=== PATIENT | female | born 1965 | race Caucasian/White ===

== ENCOUNTER 2016-09-20 12:50 | Emergency (ER) | payer SELFPAY ==
[2016-09-20] MEDS ORDERED: Albuterol/Ipratropium NEB.SOL* Albuterol 2.5 MG/Ipratropium 0.5 MG 3 ML INH ONE (16:07)
--- NOTE | 2016-09-20 16:07 | UC ---
Respiratory Complaint HPI - HPI Summary HPI Summary: cough for 1 week chest and back hurt from coughing, sinus and ears congested has sensation of movement in head--has been taking sudafed based medications for congestion - History of Current Complaint Chief Complaint: UCRespiratory Stated Complaint: COUGH Time Seen by Provider: 09/20/16 16:00 Hx Obtained From: Patient Hx Last Menstrual Period: 3 WEEKS AGO ?: No Onset/Duration: Gradual Onset, Lasting Weeks - 1, Still Present Timing: Constant Severity Initially: Mild Severity Currently: Mild Pain Intensity: 4 Pain Scale Used: 0-10 Numeric Character: Cough: Nonproductive Aggravating Factors: Nothing Alleviating Factors: OTC Meds Associated Signs And Symptoms: Positive: Pleuritic Chest Pain, URI, Nasal Congestion, Sinus Discomfort - Allergies/Home Medications Allergies/Adverse Reactions: Allergies Allergy/AdvReac Type Severity Reaction Status Date / Time No Known Allergies Allergy Verified 09/20/16 15:56 Home Medications: Home Medications Levothyroxine Sodium [Levoxyl] 09/20/16 [History] PMH/Surg Hx/FS Hx/Imm Hx Previously Healthy: No Endocrine History Of: Reports: Thyroid Disease Cardiovascular History Of: Reports: Hypertension - Surgical History Surgical History: Yes Surgery Procedure, Year, and Place: APPENDECTOMY, X2 - Family History Known Family History: Positive: None Family History: denies cardio vascular issues in family lineage - Social History Occupation: Employed Full-time Lives: With Family Alcohol Use: None Substance Use Type: None Smoking Status (MU): Never Smoked Tobacco Review of Systems Constitutional: Fatigue Skin: Negative Eyes: Negative ENT: Sore Throat, Ear Ache, Nasal Discharge Respiratory: Cough Cardiovascular: Chest Pain Gastrointestinal: Negative Genitourinary: Negative Motor: Negative Neurovascular: Negative Musculoskeletal: Negative Neurological: Headache Psychological: Negative All Other Systems Reviewed And Are Negative: Yes Physical Exam Triage Information Reviewed: Yes Appearance: Ill-Appearing - mild, Pain Distress - mild, Obese Vital Signs: Initial Vital Signs Temp 99.4 F 09/20/16 15:51 Pulse 57 09/20/16 15:51 Resp 16 09/20/16 15:51 BP 192/125 09/20/16 15:51 Pulse Ox 100 09/20/16 15:51 Vital Signs Reviewed: Yes Eye Exam: Normal Eyes: Positive: Conjunctiva Clear ENT Exam: Normal ENT: Positive: Normal ENT inspection, Hearing grossly normal, Pharynx normal, Nasal congestion, Nasal drainage, TMs normal. Negative: Tonsillar swelling, Tonsillar exudate, Trismus, Muffled/hoarse voice Neck exam: Normal Neck: Positive: Supple, Nontender, No Lymphadenopathy Respiratory Exam: Normal Respiratory: Positive: Chest non-tender, Lungs clear, Normal breath sounds, No respiratory distress, No accessory muscle use Cardiovascular Exam: Normal Cardiovascular: Positive: RRR, No Murmur, Pulses Normal, Brisk Capillary Refill , Other: - BP improved with damon re-check Musculoskeletal Exam: Normal Musculoskeletal: Positive: Strength Intact, ROM Intact, No Edema Neurological Exam: Normal Neurological: Positive: Alert, Muscle Tone Normal Psychological Exam: Normal Skin Exam: Normal UC Diagnostic Evaluation - Laboratory O2 Sat by Pulse Oximetry: 100 Respiratory Course/Dx - Course Course Of Treatment: albuterol, prednisone, flonase, augmentin, stop sudafed based decongestants, follow with pcp for bp re-check - Differential Dx/Diagnosis Differential Diagnosis/HQI/PQRI: Bronchitis, Laryngitis, Sinusitis Provider Diagnoses: Sinusitis, Bronchitis with bronchospasm, hypertension Discharge - Discharge Plan Condition: Stable Disposition: HOME Prescriptions: Albuterol HFA INHALER* [Ventolin HFA Inhaler*] 2 puff INH Q4H PRN #1 mdi PRN Reason: cough/chest congestion Amoxicillin/Clavulanate TAB* [Augmentin TAB 875*] 875 mg PO BID #20 tab Fluticasone NASAL SPRAY 50MCG* [Flonase NASAL SPRAY 50MCG*] 2 spray BOTH NARES DAILY #1 btl predniSONE TAB* [Deltasone TAB*] 10 mg PO DAILY #20 tab Patient Education Materials: Albuterol (By mouth), Sinusitis (ED), How to Use a Metered-Dose Inhaler (ED), DASH Eating Plan (ED), Hypertension (ED), Bronchospasm (ED) Forms: *Work Release Referrals: Myles Montelongo MD [Primary Care Provider] - 5 Days Additional Instructions: Stop all OTC meds with Sudafed in them--as these may be the cause of your elevated Blood Pressure. You may take OTC meds with high blood pressure formulations that are available at the pharmacy
[2016-09-20 16:17] VITALS: BP 149/110
== END 2016-09-20 17:03 | disposition home or self-care (01) ==
LOC: UCEAST 12:50
DX: J32.9 Chronic sinusitis, unspecified (principal); J20.9 Acute bronchitis, unspecified; I10 Essential (primary) hypertension; E07.9 Disorder of thyroid, unspecified
CPT/HCPCS: 94640; 99202; A9270-GY; G0463

== ENCOUNTER 2018-10-08 09:24 | Emergency (ER) | payer BC ==
[2018-10-08 10:26] VITALS: BP 192/113
--- NOTE | 2018-10-08 10:41 | UC ---
Respiratory Complaint HPI - HPI Summary HPI Summary: 5 days of cough and congestions, with difficulty sleeping and copious phlegm production. No sore throat, ear pain or headache. Has a past history of pneumonia and bronchitis, but is not currently feeling short of breath or having chest pain. Began an antihypertensive about a week ago, and has not taken today's dose. In the past, inhaled albuterol was not particularly helpful. - History of Current Complaint Chief Complaint: UCRespiratory Stated Complaint: COUGH RESP ISSUE Time Seen by Provider: 10/08/18 10:26 Hx Obtained From: Patient Hx Last Menstrual Period: 3 WEEKS AGO Onset/Duration: Gradual Onset, Lasting Days - 5 Timing: Intermittent Episodes Severity Initially: Moderate Severity Currently: Moderate Pain Intensity: 0 Character: Cough: Productive Aggravating Factors: Exertion, Recumbent Position Alleviating Factors: OTC Meds - not adequately suppressing the cough., Upright Position Associated Signs And Symptoms: Positive: Wheezing, Nasal Congestion, Hoarseness - Risk Factors Pulmonary Embolism Risk Factors: Negative Cardiac Risk Factors: Hypertension Pseudomonas Risk Factors: Negative Tuberculosis Risk Factors: Negative - Allergies/Home Medications Allergies/Adverse Reactions: Allergies Allergy/AdvReac Type Severity Reaction Status Date / Time No Known Allergies Allergy Verified 10/08/18 10:26 Home Medications: Home Medications Lisinopril TAB* [Prinivil TAB*] 10 mg PO DAILY 10/08/18 [History Confirmed 10/08] 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 Cardiovascular History: Hypertension - diangosed recently, just began use of lisinopril within the week, and has not taken today's dose. Respiratory History: Bronchitis, Pneumonia - Surgical History Surgical History: Yes Surgery Procedure, Year, and Place: APPENDECTOMY, X2 - Family History Known Family History: Positive: None - states both parents are livng and healthy Negative: Cardiac Disease, Hypertension, Diabetes Family History: denies cardio vascular issues in family lineage - Social History Occupation: Employed Full-time Alcohol Use: Occasionally Substance Use Type: None Smoking Status (MU): Never Smoked Tobacco Review of Systems All Other Systems Reviewed And Are Negative: Yes Constitutional: Positive: Fatigue Skin: Positive: Negative Eyes: Positive: Negative ENT: Positive: Nasal Discharge, Sinus Congestion Respiratory: Positive: Cough Cardiovascular: Positive: Negative Gastrointestinal: Positive: Negative Genitourinary: Positive: Negative Motor: Positive: Negative Neurovascular: Positive: Negative Musculoskeletal: Positive: Negative Neurological: Positive: Negative Psychological: Positive: Negative Is Patient Immunocompromised?: No Physical Exam Triage Information Reviewed: Yes Appearance: Ill-Appearing - looks mildly unwell, Obese Vital Signs: Initial Vital Signs Temp 98.7 F 10/08/18 10:22 Pulse 75 10/08/18 10:22 Resp 16 10/08/18 10:22 BP 192/113 10/08/18 10:22 Pulse Ox 95 10/08/18 10:22 Eyes: Positive: Conjunctiva Clear ENT: Positive: Pharynx normal Dental Exam: Normal Neck: Positive: Supple, Nontender, No Lymphadenopathy Respiratory: Positive: Decreased breath sounds, Wheezing - inspiratory and expiratory wheezing Cardiovascular: Positive: RRR, No Murmur Neurological Exam: Normal Neurological: Positive: Alert Psychological Exam: Normal Skin Exam: Normal UC Diagnostic Evaluation - Laboratory O2 Sat by Pulse Oximetry: 95 Respiratory Course/Dx - Course Course Of Treatment: augmentin and prednisone for treatment, rest at home - Differential Dx/Diagnosis Differential Diagnosis/HQI/PQRI: Bronchitis, Laryngitis, Lower Resp Infection, Sinusitis Provider Diagnosis: Bronchitis Discharge - Sign-Out/Discharge Documenting (check all that apply): Patient Departure All imaging exams completed and their final reports reviewed: No Studies - Discharge Plan Condition: Stable Disposition: HOME Prescriptions: Amoxicillin/Clavulanate TAB* [Augmentin TAB 875*] 875 mg PO BID #14 tab Benzonatate CAP* [Tessalon 100 MG CAP*] 100 mg PO TID PRN #30 cap PRN Reason: Cough predniSONE [Prednisone 20 MG TAB] 2 tab PO DAILY #10 tablet Patient Education Materials: Acute Bronchitis (ED) Referrals: Pamela Heath MD [Primary Care Provider] - Additional Instructions: Ensure that you take your lisinopril when you get home AND ensure that your blood pressure is re-checked within the week. Augmentin has been prescribed for treatment of your infection, along with prednisone to decrease airway inflammation. Use tessalon perles for cough suppression. - Billing Disposition and Condition Condition: STABLE Disposition: Home
== END 2018-10-08 10:55 | disposition home or self-care (01) ==
LOC: UCEAST 09:24
DX: J40 Bronchitis, not specified as acute or chronic (principal); I10 Essential (primary) hypertension
CPT/HCPCS: 99212; G0463

== ENCOUNTER 2019-01-29 17:49 | Emergency (ER) | payer BC ==
[2019-01-29 19:29] LABS: ABS Basophils 0.1 10^3/ul (0-0.2); ABS Eosinophils 0.1 10^3/ul (0-0.6); ABS Lymphocytes 1.3 10^3/ul (1.0-4.8); ABS Monocytes 0.6 10^3/ul (0-0.8); ABS Neutrophils 6.2 10^3/ul (1.5-7.7); Eosinophil % 1.8 %; Hematocrit 40 % (35-47); Hemoglobin 13.2 g/dL (12.0-16.0); Lymphocyte % 16.2 %; Mean Corpuscular HGB Conc 33 g/dL (31-36); Mean Corpuscular Hemoglobin 28 pg (27-31); Mean Corpuscular Volume 86 fL (80-97); Mean Platelet Volume 8.4 fL (7.4-10.4); Nucleated Red Blood Cells % 0.1; Platelet Count 343 10^3/uL (150-450); Red Blood Count 4.69 10^6 /uL (3.70-4.87); Red Cell Distribution Width 17 % (10.5-15); White Blood Count 8.3 10^3/uL (3.5-10.8)
[2019-01-29 19:45] LABS: Albumin 4.6 g/dL (3.2-5.2); Albumin/Globulin Ratio 1.3 (1-3); BUN/Creatinine Ratio 13.4 (8-20); Calcium 9.8 mg/dL (8.6-10.3); EGFR African American 88.9 (>60); EGFR Non-African American 73.5 (>60); Globulin 3.5 g/dL (2-4); Magnesium 2.1 mg/dL (1.9-2.7); Potassium 3.5 mmol/L (3.5-5.0); Total Bilirubin 0.4 mg/dL (0.2-1.0); Total Protein 8.1 g/dL (6.4-8.9)
[2019-01-29 19:46] LABS: Troponin I 0.01 ng/mL (<0.04)
--- NOTE | 2019-01-29 19:57 | ED ---
Complex/Multi-Sys Presentation - HPI Summary HPI Summary: A 53 y/o F presents to ED with episodes of lightheadedness onset two days ago. She was riding in the car after lunch, around 1700, when she suddenly felt lightheaded, had difficulty seeing, and her hands were tingling. Denies LOC, changes in speech, CP, abd pain, n/v. The sx lasted 10 minutes and gradually spontaneously resolved. She felt better by the time she got home. Yesterday, she not at baseline but had no obvious symptoms. Later in the afternoon, she felt the sx might be returning, so she rested, and they did not. She saw her PCP at 1530 today who referred her to the ED for new flipped T waves on EKG. She denies history of similar episodes. She states "I feel like I've been sick forever." She's had a cough since July 2018 that only recently resolved. She has new knee pain. PMHx: HTN. 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 neg: changes in speech.. 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 - Surgical History Surgery Procedure, Year, and Place: APPENDECTOMY, X2 Infectious Disease History: No Infectious Disease History: Denies: Traveled Outside the [place] in Last 30 Days - Family History Known Family History: Positive: Hypertension - mom Negative: Cardiac Disease, Diabetes Family History: mom had a mini-stroke - Social History Occupation: Employed Full-time Lives: With Family Alcohol Use: Occasionally Hx Substance Use: Yes Substance Use Type: Reports: Marijuana Hx Tobacco Use: No Smoking Status (MU): Never Smoked Tobacco Review of Systems Positive: Other - pos: difficulty seeing Negative: Chest Pain Negative: Abdominal Pain, Vomiting, Nausea Neurological: Other - pos: lightheadedness, hands tingling. neg: LOC Negative: Slurred Speech All Other Systems Reviewed And Are Negative: Yes Physical Exam - Summary Physical Exam Summary: Appearance: Well-appearing, Well-nourished, lying in bed comfortably Skin: Warm, dry, no obvious rash Eyes: sclera anicteric, no conjunctival pallor ENT: mucous membranes moist, pharynx appears normal Neck: Supple, nontender Respiratory: Clear to auscultation, no signs of respiratory distress Cardiovascular: Normal S1, S2. No murmurs. Normal distal pulses in tibial and radial bilaterally. Abdomen: Soft, nontender, normal active bowel sounds present Musculoskeletal: Normal, Strength/ROM Intact Neurological: A&Ox3, awake and alert, mentation is normal, speech is fluent and appropriate Psychiatric: affect is normal, does not appear anxious or depressed Triage Information Reviewed: Yes Vital Signs On Initial Exam: Initial Vitals Temp Pulse Resp BP Pulse Ox 97.8 F 80 18 174/106 98 01/29/19 18:00 01/29/19 18:00 01/29/19 18:00 01/29/19 18:00 01/29/19 18:00 Vital Signs Reviewed: Yes Diagnostics - Vital Signs Vital Signs Temp Pulse Resp BP Pulse Ox 01/29/19 18:00 97.8 F 80 18 174/106 98 - Laboratory Lab Results: Lab Results 01/29/19 01/29/19 01/29/19 Range/Units 19:19 19:19 19:19 WBC 8.3 (3.5-10.8) 10^3/uL RBC 4.69 (3.70-4.87) 10^6 /uL Hgb 13.2 (12.0-16.0) g/dL Hct 40 (35-47) % MCV 86 (80-97) fL MCH 28 (27-31) pg MCHC 33 (31-36) g/dL RDW 17 H (10.5-15) % Plt Count 343 (150-450) 10^3/uL MPV 8.4 (7.4-10.4) fL Neut % (Auto) 74.3 % Lymph % (Auto) 16.2 % Lipscomb % (Auto) 6.9 % Eos % (Auto) 1.8 % Baso % (Auto) 0.8 % Absolute Neuts (auto) 6.2 (1.5-7.7) 10^3/ul Absolute Lymphs (auto) 1.3 (1.0-4.8) 10^3/ul Absolute Monos (auto) 0.6 (0-0.8) 10^3/ul Absolute Eos (auto) 0.1 (0-0.6) 10^3/ul Absolute Basos (auto) 0.1 (0-0.2) 10^3/ul Absolute Nucleated RBC 0.0 10^3/ul Nucleated RBC % 0.1 D-Dimer, Quantitative < 200 (Less Than 230) ng/mL Sodium 135 (135-145) mmol/L Potassium 3.5 (3.5-5.0) mmol/L Chloride 96 L (101-111) mmol/L Carbon Dioxide 29 (22-32) mmol/L Anion Gap 10 (2-11) mmol/L BUN 11 (6-24) mg/dL Creatinine 0.82 (0.51-0.95) mg/dL Est GFR ( Amer) 88.9 (>60) Est GFR (Non-Af Amer) 73.5 (>60) BUN/Creatinine Ratio 13.4 (8-20) Glucose 98 (70-100) mg/dL Calcium 9.8 (8.6-10.3) mg/dL Magnesium 2.1 (1.9-2.7) mg/dL Total Bilirubin 0.40 (0.2-1.0) mg/dL AST 16 (13-39) U/L ALT 15 (7-52) U/L Alkaline Phosphatase 74 (34-104) U/L Troponin I 0.01 (<0.04) ng/mL Total Protein 8.1 (6.4-8.9) g/dL Albumin 4.6 (3.2-5.2) g/dL Globulin 3.5 (2-4) g/dL Albumin/Globulin Ratio 1.3 (1-3) TSH Pending Result Diagrams: 01/29/19 19:19 01/29/19 19:19 Lab Statement: Any lab studies that have been ordered have been reviewed, and results considered in the medical decision making process. - EKG 1756 Cardiac Rate: NL - 77 bpm EKG Rhythm: Sinus Rhythm Summary of EKG Findings: RBBB, T wave inversion inferiorly. Some of these present on tracing on 06/07/09. Re-Evaluation - Re-Evaluation 1 Re-Evaluation Time: 20:10 Change: Unchanged Comment: Discussing results with pt and plan to D/C. Complex Multi-Symp Course/Dx Course Of Treatment: Pt is a 53 y/o F presenting s/p episode of lightheadedness two days ago. She suddenly felt lightheaded, had difficulty seeing, and her hands were tingling. Denies LOC, changes in speech, CP, abd pain, n/v. The sx lasted 10 minutes and gradually spontaneously resolved. She saw her PCP at 1530 today who referred her to the ED for new flipped T waves on EKG. Labwork is without significant abnormality. EKG shows NSR at 77 bpm with RBBB, T wave inversion inferiorly. Some of these present on tracing on 06/07/09. Will discharge patient home to f/u with PCP. - Diagnoses Provider Diagnoses: Near syncope Discharge - Sign-Out/Discharge Documenting (check all that apply): Patient Departure - D/C Patient Received Moderate/Deep Sedation with Procedure: No - Discharge Plan Condition: Good Disposition: HOME Patient Education Materials: Near Syncope (ED) Referrals: Pamela Heath MD [Primary Care Provider] - Additional Instructions: We did not find any sign of any acutely dangerous condition causing your symptoms over the weekend, so it is ok to let you go home and rest. Dr. Heath apparently has a number of other studies ordered for you, so definitely follow through on that, but for now everything looks ok. - Billing Disposition and Condition Condition: GOOD Disposition: Home - Attestation Statements Document Initiated by Scribe: Yes Documenting Scribe: Harriet Almonte Provider For Whom Scribe is Documenting (Include Credential): Dr. Samy Barnes MD Scribe Attestation: Harriet Farris, scribed for Dr. Samy Barnes MD on 01/30/19 at 1150. Scribe Documentation Reviewed: Yes Provider Attestation: The documentation as recorded by the milagrosibe, Harriet Almonte accurately reflects the service I personally performed and the decisions made by me, Dr. Samy Barnes MD Status of Milagrosibe Document: Viewed
[2019-01-29 20:34] LABS: TSH (Thyroid Stimulating Horm) 2.92 mcIU/mL (0.34-5.60)
[2019-01-29 20:39] VITALS: BP 167/89
== END 2019-01-29 20:30 | disposition home or self-care (01) ==
LOC: ED 17:49
DX: R55 Syncope and collapse (principal)
CPT/HCPCS: 36415; 80053; 83605; 83735; 84443; 84484; 85025; 85379; 93005; 99282

== ENCOUNTER 2021-08-25 12:37 | Inpatient (IN) ==
[~2021-08-25 12:37] MED LIST: Buffered Lidocaine 1% SYRIN 1 ml INTRADERM ONE; Famotidine IV 10 MG/ML 2 ml VIAL (20 mg) IV ONE; Ketamine HCL 50 mg/ml 10 ml VIAL (500 MG) ONE; Lactated Ringers 1000 ml BAG 1,000 ML IV SCH; Lidocaine 2% PF 5 ML VIAL ONE; Midazolam 2 mg/2 ml VIAL 1 mg/ml 2 ml VIAL (2 mg) ONE; Propofol 10 MG/ML 20 ML BTL ONE
[2021-08-25] MEDS ORDERED: ceFAZolin 2 GM PREMIX 2 GM/50 ML BAG ONE (12:55)
[2021-08-25] MEDS ORDERED: Famotidine IV 10 MG/ML 2 ml VIAL (20 mg) ONE (13:21)
[2021-08-25] MEDS ORDERED: Labetalol IV 5 MG/ML 20 ml VIAL IV PUSH ONE ×2 (13:45→14:29)
[2021-08-25] MEDS ORDERED: Labetalol IV 5 MG/ML 20 ml VIAL ONE (13:52)
[2021-08-25] MEDS ORDERED: fentaNYL 100 mcg/2 ml 50 MCG/ML VIAL ONE (14:26)
[2021-08-25] MEDS ORDERED: Lidocaine 2% PF 5 ML VIAL ONE (14:26)
[2021-08-25] MEDS ORDERED: ROPIVACAINE 5 MG/ML 30 ML BTL (0.5%) ONE ×2 (14:26→15:00)
[2021-08-25] MEDS ORDERED: Midazolam 5 mg/5 ml VIAL 1 mg/ml 5 ml VIAL (5 mg) ONE (14:26)
[2021-08-25] MEDS ORDERED: Rocuronium 50 mg VIAL 10 mg/ml 5 ml VIAL (50 mg) ONE (14:59)
[2021-08-25] MEDS ORDERED: fentaNYL 250 mcg/5 ml 50 MCG/ML 5 ml VIAL (250 MCG) ONE (15:00)
[2021-08-25] MEDS ORDERED: EPHEDrine (Pressors) 50 MG/ML VIAL ONE ×2 (15:48→16:46)
[2021-08-25] MEDS ORDERED: HYDROmorphone 0.5 MG/0.5 ML SYRINGE ONE (16:09)
[2021-08-25] MEDS ORDERED: diPHENhydraMINE 25 mg TAB PO PRN (16:17)
[2021-08-25] MEDS ORDERED: Lactulose 30 ml UDC PO PRN (16:17)
[2021-08-25] MEDS ORDERED: diPHENhydraMINE IV 50 MG/ML 1 ml VIAL (BENADRYL) IV PRN (16:17)
[2021-08-25] MEDS ORDERED: Ondansetron 4 mg VIAL 2 MG/ML 2 ml VIAL IV PRN ×2 (16:17→17:03)
[2021-08-25] MEDS ORDERED: Magnesium Hydroxide LIQ 30 ML UDC PO PRN (16:17)
[2021-08-25] MEDS ORDERED: Ondansetron ODT 4 mg TAB 4 MG TAB PO PRN (16:17)
[2021-08-25] MEDS ORDERED: Morphine 2 MG/ML SYRINGE IV PRN (16:22)
[2021-08-25] MEDS ORDERED: Ondansetron 4 mg VIAL 2 MG/ML 2 ml VIAL ONE (16:25)
[2021-08-25] MEDS ORDERED: Dexamethasone IV 4 MG/ML VIAL 1 ml VIAL ONE (16:25)
[2021-08-25] MEDS ORDERED: Lactated Ringers 1000 ml BAG 1,000 ML IV SCH (17:00)
[2021-08-25] MEDS ORDERED: Naloxone 0.4 mg VIAL 0.4 mg/ml 1 ml VIAL IV PRN (17:03)
[2021-08-25] MEDS ORDERED: fentaNYL 100 mcg/2 ml 50 MCG/ML VIAL IV PRN (17:03)
[2021-08-25] MEDS ORDERED: HYDROmorphone 1 MG/1 ML SYRINGE IV PRN (17:03)
[2021-08-25] MEDS: Magnesium Hydroxide LIQ 30 ML UDC PO SCH (23:15)
[2021-08-25] MEDS: ceFAZolin 1 GM ADVAN 1 GM in NS 0.9% 50 ML 50 ML IVPB SCH (23:32)
[2021-08-26 06:15] LABS: Hematocrit 35 % (35-47); Hemoglobin 11.8 g/dL (12.0-16.0); Mean Platelet Volume 8.9 fL (7.4-10.4); Platelet Count 288 10^3/uL (150-450)
[2021-08-26 06:35] LABS: Calcium 8.7 mg/dL (8.6-10.3); Potassium 3.5 mmol/L (3.5-5.0)
[2021-08-26] MEDS: ceFAZolin 1 GM ADVAN 1 GM in NS 0.9% 50 ML 50 ML IVPB SCH ×2 (07:33→14:50)
[2021-08-26] MEDS ORDERED: Flu vaccine *QUAD* 2021-22* 0.5 ML SYRINGE IM ONE (09:00)
[2021-08-26] MEDS ORDERED: Vitamin THERAPEUTIC TAB PO SCH (09:00)
[2021-08-26] MEDS ORDERED: NON FORMULARY MED (Losartan-Hydrochlorothiazide 50-12.5 mg Tablet) PO SCH (09:00)
[2021-08-26] MEDS: Magnesium Hydroxide LIQ 30 ML UDC PO SCH (09:53)
[2021-08-26 14:49] VITALS: BP 109/71
== END 2021-08-26 15:55 | disposition home or self-care (01) | DRG 302 ==
LOC: AA 12:37 → SSU 19:34
PROVIDERS: ADMIT Orthopaedic Surgery Adult Reconstructive Orthopaedic Surgery; ATTEND Orthopaedic Surgery Adult Reconstructive Orthopaedic Surgery